=== PATIENT | female | born 1985 | race Caucasian/White ===

== ENCOUNTER 2022-12-27 03:22 | Emergency (ER) | payer OTHER ==
[~2022-12-27] VITALS: Ht 162.6 cm; Wt 53.5 kg
--- NOTE | 2022-12-27 03:30 | NUR ---
Pt is noted alert, responsive as she came from Home C/O Neck pain while doinf [facility]. Pt care continue as awaits MD orders.
[2022-12-27] MEDS ORDERED: IBUPROFEN 600 MG TABLET ONE (03:45)
--- NOTE | 2022-12-27 03:50 | NUR ---
Pt is noted off the unit to CT. Pt care continue.
[2022-12-27] MEDS ORDERED: IBUPROFEN 600 MG TABLET PO ONE (04:00)
--- NOTE | 2022-12-27 04:15 | NUR ---
Pt care continue as she is noted back from CT.
[2022-12-27] MEDS ORDERED: IBUP-1953 PO (05:22)
--- NOTE | 2022-12-27 05:43 | NUR ---
Pt is noted off the unit as she is been discharge to Home with all discharge instructions given with no s/s off distress or C/O pain.
[2022-12-27 05:45] VITALS: BP 125/84
== END 2022-12-27 05:46 | disposition home or self-care (01) ==
LOC: ER 03:23
DX: S13.4XXA Sprain of ligaments of cervical spine, initial encounter (principal); F41.9 Anxiety disorder, unspecified; F32.A Depression, unspecified; X58.XXXA Exposure to other specified factors, initial encounter; Y93.89 Activity, other specified; Y92.89 Other specified places as the place of occurrence of the external cause; Y99.8 Other external cause status
CPT/HCPCS: 72125-TC

== ENCOUNTER 2025-02-26 18:44 | Emergency (ER) | payer OTHER ==
[~2025-02-26] VITALS: Ht 162.6 cm; Wt 53.1 kg
[~2025-02-26 18:44] MED LIST: IBUP-1953 PO
[2025-02-26 19:03] VITALS: BP 125/85; TEMP 98.2; O2SAT 98
[2025-02-26] MEDS ORDERED: OMEP20CA15 PO (19:23)
[2025-02-26] MEDS ORDERED: METR-147 PO (19:23)
[2025-02-26] MEDS ORDERED: TETR-66 PO (19:23)
[2025-02-26] MEDS ORDERED: BISM-120 PO (19:23)
== END 2025-02-26 19:43 | disposition home or self-care (01) ==
LOC: ER 18:48
DX: A08.4 Viral intestinal infection, unspecified (principal); B96.81 Helicobacter pylori [H. pylori] as the cause of diseases classified elsewhere; F32.A Depression, unspecified; F41.9 Anxiety disorder, unspecified; Z79.899 Other long term (current) drug therapy